=== PATIENT | female | born 1985 | race Caucasian/White ===

== ENCOUNTER 2022-08-19 10:36 | Day surgery (SDC) | payer BC ==
[~2022-08-19] VITALS: Ht 170.2 cm; Wt 70.3 kg
[~2022-08-19 10:36] MED LIST: PAR20T PO
[2022-08-19] MEDS ORDERED: ceFAZolin 1GM/50ML 100 ML IV ONE (12:12)
[2022-08-19] MEDS ORDERED: PROPOFOL 10 MG/ML 20 ML IV ONE ×2 (14:05→14:32)
[2022-08-19] MEDS ORDERED: ONDANSETRON HCL 4 MG/2 ML VIAL ONE (14:05)
[2022-08-19] MEDS ORDERED: GLYCOPYRROLATE 0.2 MG/ML 1ML VIAL ONE (14:05)
[2022-08-19] MEDS ORDERED: fentaNYL CITRATE 100 MCG/2 ML VL ONE (14:05)
[2022-08-19] MEDS ORDERED: MIDAZOLAM HCL 2MG/2ML 2ml VIAL (1mg/ml) ONE ×2 (14:05→17:08)
[2022-08-19] MEDS ORDERED: DexAMETHasone SOD PHOS 10MG/1ML VIAL INJ ONE (14:05)
[2022-08-19] MEDS ORDERED: KETOROLAC TROMETH 30 MG/ML 1ML VIAL ONE (14:05)
[2022-08-19] MEDS ORDERED: METOCLOPRAMIDE HCL 5MG/ml INJ 2ml VIAL IV PRN (14:15)
[2022-08-19] MEDS ORDERED: MORPHINE SULFATE INJ 2 MG/ml SYRG IV PRN (14:15)
[2022-08-19] MEDS ORDERED: HYDROmorphone HCL 2 MG/ML VL/or syr IV PRN ×2 (14:15)
[2022-08-19] MEDS ORDERED: KETOROLAC TROMETH 30 MG/ML 1ML VIAL IV ONE (14:15)
[2022-08-19] MEDS ORDERED: BUPIVACAINE 0.5% P/F INJ 10 ML VIAL ONE (14:27)
[2022-08-19] MEDS ORDERED: BUPIVACAINE 0.25% INJ 50ML VIAL ONE (17:09)
[2022-08-19] MEDS ORDERED: EPINEPHrine HCL 1 MG/1 ML AMP ONE ×2 (17:09→18:22)
[2022-08-19 19:45] VITALS: BP 136/82
== END 2022-08-19 20:00 | disposition home or self-care (01) ==
LOC: SUR 10:36
PROVIDERS: ATTEND Orthopaedic Surgery Sports Medicine
DX: S89.001A Unspecified physeal fracture of upper end of right tibia, initial encounter for closed fracture (principal); S82.111A Displaced fracture of right tibial spine, initial encounter for closed fracture; X58.XXXA Exposure to other specified factors, initial encounter; Y93.89 Activity, other specified; Y92.89 Other specified places as the place of occurrence of the external cause; Y99.8 Other external cause status; Z20.822 Contact with and (suspected) exposure to COVID-19
CPT/HCPCS: 29850; 73560; 76000; C1713; J0171; J0690; J1100; J1885; J2250; J2405; J2704; J3010; J3490; U0003